=== PATIENT | male | born 1995 | race Caucasian/White ===

== ENCOUNTER 2024-07-09 12:01 | Emergency (ER) | payer OTHER ==
[2024-07-09 12:41] VITALS: BP 120/76; PULSE 72; RESP 18; TEMP 98.4; BMI 29.6
[2024-07-09] MEDS ORDERED: IBUPROFEN 400 MG TABLET (FP) PO ONE (12:43)
[2024-07-09] MEDS ORDERED: LIDOCAINE 4% PATCH TP ONE (12:44)
[2024-07-09] MEDS ORDERED: ACETAMINOPHEN 500 MG TABLET (FP) ONE (12:45)
[2024-07-09] MEDS: ACETAMINOPHEN 500 MG TABLET (FP) PO ONE (12:52)
[2024-07-09] MEDS: LIDOCAINE 4% PATCH TP ONE (12:54)
[2024-07-09] MEDS: IBUPROFEN 400 MG TABLET (FP) PO ONE (12:54)
[2024-07-09] MEDS ORDERED: LIDOCAINE PATCH REMOVAL TD ONE (22:00)
== END 2024-07-09 14:15 | disposition home or self-care (01) ==
LOC: JER 12:01
DX: S29.012A Strain of muscle and tendon of back wall of thorax, initial encounter (principal); X50.1XXA Overexertion from prolonged static or awkward postures, initial encounter; Y99.0 Civilian activity done for income or pay
CPT/HCPCS: 99283-25